=== PATIENT | female | born 1980 | race Hispanic/Latino ===

== ENCOUNTER 2019-02-18 13:18 | Inpatient (IN) | payer SELFPAY ==
[~2019-02-18] VITALS: Ht 157.5 cm; Wt 76.2 kg
[2019-02-18 14:34] LABS: BASOPHILS % (AUTO) 0.8 % (0.0-5.0); EOSINOPHILS % (AUTO) 0.7 % (0.0-8.0); HEMATOCRIT 40.7 % (36-48); LYMPHOCYTES % (AUTO) 21.9 % (21.0-51.0); MEAN CORPUSCULAR HEMOGLOBIN 31.3 pg (27.0-33.0); MEAN CORPUSCULAR HGB CONC 34.2 g/dL (32.0-36.0); MEAN CORPUSCULAR VOLUME 91.5 fL (79-99); MONOCYTES % (AUTO) 5.5 % (3.0-13.0); NEUTROPHILS % (AUTO) 71.1 % (40.0-77.0); NUCLEATED RED BLOOD CELLS 0.1 % (0.0-0.19); PLATELET COUNT (AUTO) 217 K/uL (130-400); RED BLOOD CELL COUNT(AUTO) 4.45 MIL/uL (4.00-5.50); RED CELL DISTRIBUTION WIDTH 13.7 % (11.0-15.5); WHITE BLOOD COUNT (AUTO) 6.7 K/uL (4.8-10.8)
[2019-02-18 14:45] LABS: CREATININE 0.7 mg/dL (0.5-1.5); POTASSIUM 3.7 mmol/L (3.5-5.1)
[2019-02-18 15:07] LABS: ALBUMIN 3.5 g/dL (3.5-5.0); BILIRUBIN,TOTAL 0.2 mg/dL (0.2-1.0); TOTAL PROTEIN, SERUM 6.9 g/dL (6.0-8.3)
[2019-02-18] MEDS ORDERED: ACETAMINOPHEN 325 MG TAB PO PRN (19:15)
[2019-02-18] MEDS ORDERED: HYDRALAZINE HCL 20 MG/ML VIAL IV PRN (19:15)
[2019-02-18 19:48] LABS: MYOGLOBIN 92 ng/mL (10-92); TROPONIN I < 0.04 ng/mL (0.00-0.06)
[2019-02-18 19:49] LABS: CREATINE KINASE, TOTAL 2917 U/L (21-232)
[2019-02-18] MEDS ORDERED: SODIUM CHLORIDE 0.9% 1000ML 2,000 ML IV ONE (19:56)
[2019-02-18 20:30] VITALS: BP 140/73
[2019-02-18] MEDS: SODIUM CHLORIDE 0.9% 1000ML 1,000 ML IV SCH (21:00)
[2019-02-18] MEDS: FAMOTIDINE/PF 20 MG/2 ML VIAL IV SCH (21:54)
[2019-02-18] MEDS: ACETAMINOPHEN 325 MG TAB PO PRN (23:52)
[2019-02-19] VITALS: BP 126/62
[2019-02-19] MEDS: SODIUM CHLORIDE 0.9% 1000ML 1,000 ML IV SCH ×5 (01:16→23:54)
[2019-02-19 04:00] VITALS: BP 136/77
[2019-02-19 04:44] LABS: MYOGLOBIN 49 ng/mL (10-92); TROPONIN I < 0.04 ng/mL (0.00-0.06)
[2019-02-19 04:49] LABS: CREATINE KINASE, TOTAL 1369 U/L (21-232)
[2019-02-19 08:00] VITALS: BP 124/78
[2019-02-19] MEDS: FAMOTIDINE/PF 20 MG/2 ML VIAL IV SCH ×2 (08:45→19:20)
[2019-02-19] MEDS: ENOXAPARIN SODIUM 40 MG/0.4 ML SYRINGE SQ SCH (08:45)
[2019-02-19 12:00] VITALS: BP 124/62
[2019-02-19 12:15] LABS: MYOGLOBIN 40 ng/mL (10-92); TROPONIN I < 0.04 ng/mL (0.00-0.06)
[2019-02-19 12:21] LABS: CREATINE KINASE, TOTAL 1297 U/L (21-232)
--- NOTE | 2019-02-19 12:26 | NUR ---
D/C PLAN CM spoke to pt regarding d/c planning. Pt is independent and lives with children. States her parents can assist in care if needed. Pt states she does have active medical insurance. Reports she gave information to ER registration staff. CM emailed [facility] in regards to following up with above. CM provided community resources packet. Plan to home. No needs identified or verbalized. CM to f/u Addendum: 02/19/19 at 1229 by KRISHNA SIFUENTES CM Amended: Links added.
[2019-02-19] MEDS: ACETAMINOPHEN 325 MG TAB PO PRN (12:35)
[2019-02-19 16:00] VITALS: BP 132/75
[2019-02-19 20:00] VITALS: BP 141/88
[2019-02-20] VITALS: BP 148/71
[2019-02-20 04:00] VITALS: BP 126/74
[2019-02-20] MEDS: SODIUM CHLORIDE 0.9% 1000ML 1,000 ML IV SCH ×4 (05:50→20:02)
[2019-02-20 07:02] LABS: HEMATOCRIT 38.1 % (36-48); MEAN CORPUSCULAR HGB CONC 33.6 g/dL (32.0-36.0); MEAN CORPUSCULAR VOLUME 92.3 fL (79-99); PLATELET COUNT (AUTO) 237 K/uL (130-400); RED BLOOD CELL COUNT(AUTO) 4.13 MIL/uL (4.00-5.50); RED CELL DISTRIBUTION WIDTH 13.6 % (11.0-15.5); WHITE BLOOD COUNT (AUTO) 7.2 K/uL (4.8-10.8)
[2019-02-20 07:31] LABS: CREATININE 0.6 mg/dL (0.5-1.5)
[2019-02-20 07:32] VITALS: BP 145/52
[2019-02-20] MEDS: FAMOTIDINE/PF 20 MG/2 ML VIAL IV SCH ×2 (08:18→20:02)
[2019-02-20] MEDS: ENOXAPARIN SODIUM 40 MG/0.4 ML SYRINGE SQ SCH (08:24)
[2019-02-20 12:00] VITALS: BP 99/64
[2019-02-20 16:00] VITALS: BP 142/76
[2019-02-20 20:00] VITALS: BP 123/83
[2019-02-20] MEDS: ACETAMINOPHEN 325 MG TAB PO PRN (20:01)
[2019-02-21] VITALS: BP 108/44
[2019-02-21 04:00] VITALS: BP 116/55
[2019-02-21] MEDS: SODIUM CHLORIDE 0.9% 1000ML 1,000 ML IV SCH ×2 (04:39→09:58)
[2019-02-21 06:24] LABS: HEMATOCRIT 37.4 % (36-48); MEAN CORPUSCULAR HGB CONC 34.9 g/dL (32.0-36.0); MEAN CORPUSCULAR VOLUME 91.5 fL (79-99); NUCLEATED RED BLOOD CELLS 0.1 % (0.0-0.19); PLATELET COUNT (AUTO) 195 K/uL (130-400); RED BLOOD CELL COUNT(AUTO) 4.09 MIL/uL (4.00-5.50); RED CELL DISTRIBUTION WIDTH 13.3 % (11.0-15.5); WHITE BLOOD COUNT (AUTO) 7.1 K/uL (4.8-10.8)
[2019-02-21 06:44] LABS: CREATININE 0.6 mg/dL (0.5-1.5); POTASSIUM 3.4 mmol/L (3.5-5.1)
[2019-02-21 08:06] VITALS: BP 118/65
[2019-02-21] MEDS ORDERED: POTASSIUM CHLORIDE 20 MEQ ERTAB PO SCH (10:15)
[2019-02-21 11:26] VITALS: BP 103/68
[2019-02-21] MEDS: ENOXAPARIN SODIUM 40 MG/0.4 ML SYRINGE SQ SCH (11:45)
[2019-02-21] MEDS: FAMOTIDINE/PF 20 MG/2 ML VIAL IV SCH (11:52)
--- NOTE | 2019-02-21 12:35 | NUR ---
DISCHARGE SUMMARY REVIEW WIT PT. AND DISCHARGE CARE, TO FOLLOW WITH A PRIVATE DR. AND TO FOLLOWUP WITH LABS .REVIEW DISCHARGE ORDERS , DENIES ANY PAIN,. OR SWELLING. SL TO HER RT WRIST DC. WITH NO HEMATOMA NOTED .A DRESSING APPLICTION ON .
== END 2019-02-21 12:35 | disposition home or self-care (01) | DRG 558 ==
LOC: EDH 13:18 → EDHIP 13:19 → OBSVTOIN 13:19 → 3DH 20:53
PROVIDERS: ADMIT Internal Medicine; ATTEND Internal Medicine
DX: M62.82 Rhabdomyolysis (principal); E66.9 Obesity, unspecified; E87.6 Hypokalemia; Z68.30 Body mass index [BMI] 30.0-30.9, adult; Z90.710 Acquired absence of both cervix and uterus; Z82.49 Family history of ischemic heart disease and other diseases of the circulatory system
CPT/HCPCS: 36415; 71046; 80048; 80053; 82550; 83874; 84484; 85025; 85027; 85651; 86140; 93970; G0378; J1650; J3490; J7030